=== PATIENT | male | born 1940 | race African-American/Black ===

== ENCOUNTER 2017-09-09 08:52 | Emergency (ER) | payer MEDICARE, MEDICAID ==
[~2017-09-09] VITALS: Ht 170.2 cm; Wt 65.0 kg
[~2017-09-09 08:52] MED LIST: CEPH500 PO; DOCU100S PO; HYDR-3580 PO; METF-324 PO; PROT40TA PO; ZOCO10TA PO
[2017-09-09 09:03] VITALS: BP 140/82; PULSE 111; RESP 19; TEMP 98.6; O2SAT 99
[2017-09-09] MEDS ORDERED: TETANUS/DIPHTHERIA TOXOID ADULT 0.5 ML VIAL IM ONE (09:45)
--- NOTE | 2017-09-09 10:53 | RADRPT ---
EXAM DATE: 09/09/2017 10:33 AM EDT AGE/SEX: 77 years / Male INDICATIONS: Fell today. CLINICAL DATA: This is the patient's initial encounter. Patient reports that signs and symptoms have been present for 1 day and indicates a pain score of Nonresponsive. MEDICAL/SURGICAL HISTORY: Hypertension. diabetic None. COMPARISON: No prior exams available for comparison. FINDINGS: A nonspecific gas pattern is noted with air throughout the gastrointestinal tract. There is no eviden ce of pathologic distention or mass effect. Degenerative changes seen throughout the lumbar spine. Osseous structures otherwise appear intact. CONCLUSION: Nonspecific gas pattern No evidence of pathologic intestinal distention or mass effect. Electronically signed by: Hernando Guo MD 09/09/2017 10:52 AM EDT
--- NOTE | 2017-09-09 10:54 | RADRPT ---
EXAM DATE: 09/09/2017 10:36 AM EDT AGE/SEX: 77 years / Male INDICATIONS: Fell today. CLINICAL DATA: This is the patient's initial encounter. Patient reports that signs and symptoms have been present for 1 day and indicates a pain score of Nonresponsive. MEDICAL/SURGICAL HISTORY: Hypertension. diabetic . not known COMPARISON: No prior exams available for comparison. FINDINGS: Bony structures are intact and in normal alignment. Osseous density is normal. Soft tissues are unre markable. No radiopaque foreign bodies seen. CONCLUSION: No evidence of recent bony injury. Electronically signed by: Hernando Guo MD 09/09/2017 10:52 AM EDT
--- NOTE | 2017-09-09 10:55 | RADRPT ---
EXAM DATE: 09/09/2017 10:40 AM EDT AGE/SEX: 77 years / Male INDICATIONS: Fell today. CLINICAL DATA: This is the patient's initial encounter. Patient reports that signs and symptoms have been present for 1 day and indicates a pain score of Nonresponsive. MEDICAL/SURGICAL HISTORY: Hypertension. diabetic . not known COMPARISON: No prior exams available for comparison. FINDINGS: Bony structures are intact and in normal alignment. Osseous density is normal. Soft tissues are unre markable. No radiopaque foreign bodies seen. CONCLUSION: No evidence of recent bony injury. Electronically signed by: Hernando Guo MD 09/09/2017 10:53 AM EDT
--- NOTE | 2017-09-09 11:03 | RADRPT ---
EXAM DATE: 09/09/2017 10:27 AM EDT AGE/SEX: 77 years / Male INDICATIONS: Fell today. CLINICAL DATA: This is the patient's initial encounter. Patient reports that signs and symptoms have been present for 1 day and indicates a pain score of Nonresponsive. MEDICAL/SURGICAL HISTORY: Hypertension. diabetic . not known [place] [facility] [place]. . FINDINGS: The heart is stable. There is chronic blunting of the right costophrenic recess with pleural calcific ations which are unchanged. No focal infiltrate or pulmonary vascular congestion is noted. Degenerati ve changes are noted throughout the thoracic spine. CONCLUSION: No significant change compared to 07/30/2012. Electronically signed by: Alex Pa MD 09/09/2017 11:02 AM EDT
[2017-09-09 11:56] LABS: AUTOMATED NEUTROPHIL # 13.9 TH/MM3 (1.8-7.7); BASOPHIL % 0.3 % (0.0-2.0); EOSINOPHIL % 0.1 % (0.0-4.0); HEMATOCRIT 37.2 % (39.0-51.0); HEMOGLOBIN 12.3 GM/DL (13.0-17.0); LYMPHOCYTE # 0.2 TH/MM3 (1.0-4.8); MEAN CORPUSCULAR HEMOGLOBIN 30.1 PG (27.0-34.0); MEAN CORPUSCULAR HGB CONC 33.1 % (32.0-36.0); MEAN PLATELET VOLUME 7.5 FL (7.0-11.0); MONO % 11.2 % (0.0-8.0); MONOCYTE # 1.8 TH/MM3 (0-0.9); NEUT % 87.4 % (16.0-70.0); PLATELET COUNT 272 TH/MM3 (150-450); RED BLOOD COUNT 4.09 MIL/MM3 (4.50-5.90); RED CELL DISTRIBUTION WIDTH 16.8 % (11.6-17.2); WHITE BLOOD COUNT 15.9 TH/MM3 (4.0-11.0)
[2017-09-09] MEDS ORDERED: LIDOCAINE 1%/EPINEPHrine 1:100,000 SOLN 20 ML VIAL INFIL ONE (12:00)
[2017-09-09 12:03] LABS: PROTHROMBIN TIME - PATIENT 10.4 SEC (9.8-11.6)
--- NOTE | 2017-09-09 12:05 | PD ---
Physical Exam Date Seen by Provider: Sep 09, 2017 Time Seen by Provider: 12:05 Data Data Last Documented VS Vital Signs Date Time Temp Pulse Resp B/P (MAP) Pulse Ox O2 Delivery O2 Flow Rate FiO2 09/09/17 09:03 98.6 111 19 140/82 (101) 99 Orders Orders Complete Blood Count With Diff (09/09/17 09:43) Basic Metabolic Panel (Bmp) (09/09/17 09:43) Prothrombin Time / Inr (Pt) (09/09/17 09:43) Act Partial Throm Time (Ptt) (09/09/17 09:43) Chest, Single Ap (09/09/17 09:43) Pelvis, Ap Only (Routine) (09/09/17 09:43) Iv Access Insert/Monitor (09/09/17 09:43) Ecg Monitoring (09/09/17 09:43) Oximetry (09/09/17 09:43) Foot, Complete (Mqu1xpi) (09/09/17 09:43) Tetanus/Diphtheria Tox Adult (Tetanus/Di (09/09/17 09:45) Tibia/Fibula (Ap/Lat) (09/09/17 09:55) Lidocai-Epi 1%-1:100,000 Inj (Xylocaine- (09/09/17 12:00) Labs Laboratory Tests Test 09/09/17 11:32 White Blood Count 15.9 TH/MM3 Red Blood Count 4.09 MIL/MM3 Hemoglobin 12.3 GM/DL Hematocrit 37.2 % Mean Corpuscular Volume 91.0 FL Mean Corpuscular Hemoglobin 30.1 PG Mean Corpuscular Hemoglobin Concent 33.1 % Red Cell Distribution Width 16.8 % Platelet Count 272 TH/MM3 Mean Platelet Volume 7.5 FL Neutrophils (%) (Auto) 87.4 % Lymphocytes (%) (Auto) 1.0 % Monocytes (%) (Auto) 11.2 % Eosinophils (%) (Auto) 0.1 % Basophils (%) (Auto) 0.3 % Neutrophils # (Auto) 13.9 TH/MM3 Lymphocytes # (Auto) 0.2 TH/MM3 Monocytes # (Auto) 1.8 TH/MM3 Eosinophils # (Auto) 0.0 TH/MM3 Basophils # (Auto) 0.0 TH/MM3 CBC Comment DIFF FINAL Differential Comment Prothrombin Time 10.4 SEC Prothromb Time International Ratio 1.0 RATIO Activated Partial Thromboplast Time 27.7 SEC Blood Urea Nitrogen 8 MG/DL Creatinine 0.65 MG/DL Random Glucose 75 MG/DL Calcium Level 8.6 MG/DL Sodium Level 127 MEQ/L Potassium Level 4.7 MEQ/L Chloride Level 86 MEQ/L Carbon Dioxide Level 29.1 MEQ/L Anion Gap 12 MEQ/L Estimat Glomerular Filtration Rate 145 ML/MIN [facility] Supervised Visit with GEO: No Narrative Course I was asked to evaluate this patient's left denton laceration. The patient was initially seen by Dr. Harris. Please see his note for full H&P. On my exam there is a 3 cm linear laceration of the midshin. No visible foreign body or active bleeding noted. Laceration repair was performed. Please see my procedure note for details. Dr. Harris retains care of this patient. Please see his note for disposition. Procedures Procedure Narrative LACERATION LOCATION: Left anterior mid denton LENGTH: 3 cm NUMBER OF STITCHES/THOMAS: 5 REPAIR: The area of the laceration was prepped with Betadine and sterilely draped. The laceration was infiltrated with 1% lidocaine with epinephrine. The wound was copiously irrigated and explored without evidence of foreign body, tendon injury or neurovascular injury. The wound was closed using 4-0 Prolene. This was a single layer repair. A sterile dressing was applied. The patient was advised to keep the dressing clean and dry. Patient tolerated the procedure well. Belle Conner Sep 09, 2017 12:05
[2017-09-09 12:27] LABS: BICARBONATE 29.1 MEQ/L (21.0-32.0); CALCIUM 8.6 MG/DL (8.5-10.1); CREATININE 0.65 MG/DL (0.60-1.30)
[2017-09-09 12:45] VITALS: BP 122/74; PULSE 105; RESP 17; O2SAT 95
--- NOTE | 2017-09-09 13:14 | PD ---
HPI Chief Complaint: Fall Time Seen by Provider: 09:34 Travel History International Travel<30 days: No Contact w/Intl Traveler<30days: No Traveled to known affect area: No History of Present Illness HPI 77-year-old male was brought in by EMS after a fall at home. Patient reportedly fell downstairs at home today. Patient states that he has laceration to left lower leg and abrasion to the right foot. Patient denies loss of consciousness. Patient denies any headache or neck pain. Patient denies any chest pain or shortness of breath. Patient denies abdominal pain. Patient complains of burning pain anterior aspect left lower leg. Patient states that he is not up-to-date with TD booster. Patient denies any other injury. PFSH Past Medical History Hx Anticoagulant Therapy: No Arthritis: Yes Cancer: No Cardiovascular Problems: Yes High Cholesterol: Yes Chemotherapy: No Chest Pain: Yes Cerebrovascular Accident: No Coronary Artery Disease: Yes Diabetes: Yes Patient Takes Glucophage: Yes Diminished Hearing: Yes Endocrine: No Genitourinary: No Hypertension: Yes Immune Disorder: No Musculoskeletal: No Neurologic: No Psychiatric: No Reproductive: No Respiratory: No Radiation Therapy: Yes Seizures: Yes Tetanus Vaccination: > 5 Years Past Surgical History Abdominal Surgery: Yes (colon ) Hysterectomy: No Other Surgery: Yes (throat) Social History Alcohol Use: No (occasion) Tobacco Use: No Substance Use: No Allergies-Medications (Allergen,Severity, Reaction): Coded Allergies: No Known Allergies (Verified , 07/30/12) Reported Meds & Prescriptions Reported Meds & Active Scripts Active Zocor (Simvastatin) 10 Mg Tab 10 Mg PO HS Reported Keflex 500 mg Cap (Cephalexin Monohydrate) 500 Mg Cap 500 Mg PO BID Protonix (Pantoprazole Sodium) 40 Mg Tabdr 40 Mg PO DAILY Colace (Docusate Sodium) 100 Mg/10 Ml Soln 100 Mg PO DAILY Lortab 7.5/325 Tab (Hydrocodone-Acetaminophen) 7.5 Mg/325 Mg Tab 1 Tab PO Q4HPRN Glucophage (Metformin HCl) 1,000 Mg Tab 1,000 Mg PO BID Review of Systems General / Constitutional: No: Fever Eyes: No: Visual changes HENT: No: Headaches Cardiovascular: No: Chest Pain or Discomfort Respiratory: No: Shortness of Breath Gastrointestinal: No: Abdominal Pain Genitourinary: No: Dysuria Musculoskeletal: No: Pain Skin: No Rash Neurologic: No: Weakness Psychiatric: No: Depression Endocrine: No: Polydipsia Hematologic/Lymphatic: No: Easy Bruising Physical Exam Narrative GENERAL: Well-nourished, well-developed patient. SKIN: Focused skin assessment warm/dry. HEAD: Normocephalic. EYES: No scleral icterus. No injection or drainage. NECK: Supple, trachea midline. No JVD or lymphadenopathy. CARDIOVASCULAR: Regular rate and rhythm without murmurs, gallops, or rubs. RESPIRATORY: Breath sounds equal bilaterally. No accessory muscle use. GASTROINTESTINAL: Abdomen soft, non-tender, nondistended. MUSCULOSKELETAL: No cyanosis, or edema. BACK: Nontender without obvious deformity. No CVA tenderness. Patient has a 3 cm laceration pretibial area left lower leg. Minor skin abrasion medial aspect of the right foot at the MCP joint. No active bleeding. Sensory motor function distally intact. Data Data Last Documented VS Vital Signs Date Time Temp Pulse Resp B/P (MAP) Pulse Ox O2 Delivery O2 Flow Rate FiO2 09/09/17 13:13 09/09/17 12:45 105 17 95 Room Air 09/09/17 09:03 98.6 Orders Orders Complete Blood Count With Diff (09/09/17 09:43) Basic Metabolic Panel (Bmp) (09/09/17 09:43) Prothrombin Time / Inr (Pt) (09/09/17 09:43) Act Partial Throm Time (Ptt) (09/09/17 09:43) Chest, Single Ap (09/09/17 09:43) Pelvis, Ap Only (Routine) (09/09/17 09:43) Iv Access Insert/Monitor (09/09/17 09:43) Ecg Monitoring (09/09/17 09:43) Oximetry (09/09/17 09:43) Foot, Complete ([id number]) (09/09/17 09:43) Tetanus/Diphtheria Tox Adult (Tetanus/Di (09/09/17 09:45) Tibia/Fibula (Ap/Lat) (09/09/17 09:55) Lidocai-Epi 1%-1:100,000 Inj (Xylocaine- (09/09/17 12:00) Ed Discharge Order (09/09/17 13:05) Labs Laboratory Tests Test 09/09/17 11:32 White Blood Count 15.9 TH/MM3 Red Blood Count 4.09 MIL/MM3 Hemoglobin 12.3 GM/DL Hematocrit 37.2 % Mean Corpuscular Volume 91.0 FL Mean Corpuscular Hemoglobin 30.1 PG Mean Corpuscular Hemoglobin Concent 33.1 % Red Cell Distribution Width 16.8 % Platelet Count 272 TH/MM3 Mean Platelet Volume 7.5 FL Neutrophils (%) (Auto) 87.4 % Lymphocytes (%) (Auto) 1.0 % Monocytes (%) (Auto) 11.2 % Eosinophils (%) (Auto) 0.1 % Basophils (%) (Auto) 0.3 % Neutrophils # (Auto) 13.9 TH/MM3 Lymphocytes # (Auto) 0.2 TH/MM3 Monocytes # (Auto) 1.8 TH/MM3 Eosinophils # (Auto) 0.0 TH/MM3 Basophils # (Auto) 0.0 TH/MM3 CBC Comment DIFF FINAL Differential Comment Prothrombin Time 10.4 SEC Prothromb Time International Ratio 1.0 RATIO Activated Partial Thromboplast Time 27.7 SEC Blood Urea Nitrogen 8 MG/DL Creatinine 0.65 MG/DL Random Glucose 75 MG/DL Calcium Level 8.6 MG/DL Sodium Level 127 MEQ/L Potassium Level 4.7 MEQ/L Chloride Level 86 MEQ/L Carbon Dioxide Level 29.1 MEQ/L Anion Gap 12 MEQ/L Estimat Glomerular Filtration Rate 145 ML/MIN [facility] [place] Medical Decision Making Medical Screen Exam Complete: Yes Emergency Medical Condition: Yes Interpretation(s) Last Impressions Tibia/Fibula X-Ray 09/09/17 09 Signed Impressions: CONCLUSION: No evidence of recent bony injury. Pelvis X-Ray 09/09/17942 Signed Impressions: CONCLUSION: Nonspecific gas pattern No evidence of pathologic intestinal distention or mass effect. Foot X-Ray 09/09/17942 Signed Impressions: CONCLUSION: No evidence of recent bony injury. Chest X-Ray 09/09/17942 Signed Impressions: CONCLUSION: No significant change compared to 07/30/2012. CBC WBC 15.9. Hemoglobin 12.3 hematocrit 37.2. 87 neutrophil. Sodium 127. Differential Diagnosis Differential Dx : Traumatic injury Narrative Course 77-year-old male fell down steps today. Patient is laceration to left leg. Patient has leukocytosis unknown etiology. Could be stress related. Advised patient to follow-up local physician. Patient has hyponatremia. Advised patient to increase his salt in diet. Diagnosis Primary Impression: Laceration of left leg Qualified Codes: S81.812A - Laceration without foreign body, left lower leg, initial encounter Additional Impressions: Abrasion of right foot Qualified Codes: S90.811A - Abrasion, right foot, initial encounter Hyponatremia Patient Instructions: General Instructions Additional Instructions: Wound care daily. Suture removal in 14 days. Increase his salt in diet. Follow with local physician. Return if worse. Med/Other Pt SpecificInfo: No Change to Meds Disposition: 01 DISCHARGE HOME Condition: Stable Abdullahi Harris MD Sep 09, 2017 13:14
== END 2017-09-09 13:29 | disposition home or self-care (01) ==
LOC: NEPC 08:52
DX: S81.812A Laceration without foreign body, left lower leg, initial encounter (principal); S90.811A Abrasion, right foot, initial encounter; E87.1 Hypo-osmolality and hyponatremia; E78.00 Pure hypercholesterolemia, unspecified; I25.10 Atherosclerotic heart disease of native coronary artery without angina pectoris; E11.9 Type 2 diabetes mellitus without complications; M19.90 Unspecified osteoarthritis, unspecified site; D72.829 Elevated white blood cell count, unspecified; I10 Essential (primary) hypertension; W10.8XXA Fall (on) (from) other stairs and steps, initial encounter; Y92.009 Unspecified place in unspecified non-institutional (private) residence as the place of occurrence of the external cause; Z79.84 Long term (current) use of oral hypoglycemic drugs; Z23 Encounter for immunization; Z79.899 Other long term (current) drug therapy
CPT/HCPCS: 12002; 71045; 72170; 73590; 73630; 80048; 85025; 85610; 85730; 90471; 90714